=== PATIENT | male | born 1960 | race African-American/Black ===

== ENCOUNTER 2016-07-09 11:10 | Emergency (ER) | payer OTHER ==
[~2016-07-09] VITALS: Ht 175.3 cm; Wt 59.0 kg
[2016-07-09] MEDS ORDERED: LIDOCAINE HCL 1%/EPI 1:200,000 30 ML VIAL MC ONE (13:15)
[2016-07-09] MEDS ORDERED: BACITRACIN ZINC OINT UDPKT TOP ONE (13:15)
[2016-07-09] MEDS ORDERED: TETANUS, DIPHTHERIA, PERTUSSIS VAC/PF 0.5ML (>7YR OLD) IM ONE (13:15)
[2016-07-09 15:14] VITALS: BP 121/70
[2016-07-09] MEDS ORDERED: KETOROLAC 60MG/2ML VIAL IM ONE (15:15)
== END 2016-07-09 15:40 | disposition home or self-care (01) ==
LOC: ER 13:59
DX: S01.81XA Laceration without foreign body of other part of head, initial encounter (principal); S00.511A Abrasion of lip, initial encounter; S00.81XA Abrasion of other part of head, initial encounter; F17.200 Nicotine dependence, unspecified, uncomplicated; F14.10 Cocaine abuse, uncomplicated; W20.8XXA Other cause of strike by thrown, projected or falling object, initial encounter; Y93.89 Activity, other specified; Y92.89 Other specified places as the place of occurrence of the external cause; Y99.8 Other external cause status
CPT/HCPCS: 12011; 70450; 70486; 96372; 99284; J1885; X7700; Z7610